=== PATIENT | female | born 1995 ===

== ENCOUNTER 2021-12-05 18:58 | Emergency (ER) | payer MEDICAID ==
[~2021-12-05] VITALS: Ht 162.6 cm; Wt 82.0 kg
[2021-12-05] MEDS ORDERED: IBUPROFEN 800MG TABLET PO ONE (20:15)
[2021-12-05] MEDS ORDERED: BACLOFEN 10MG TABLET PO ONE (21:00)
[2021-12-05] MEDS ORDERED: ONDANSETRON 4MG ODT PO ONE (21:15)
[2021-12-05 23:21] VITALS: BP 125/83
[2021-12-05 23:25] LABS: OPIATES URINE SCREEN NEGATIVE (NEGATIVE)
[2021-12-05 23:26] LABS: *AMPHETAMINES SCREEN URINE NEGATIVE (NEGATIVE); *BARBITURATES SCREEN URINE NEGATIVE (NEGATIVE); *BENZODIAZEPINES SCREEN URINE NEGATIVE (NEGATIVE); *COCAINE SCREEN URINE NEGATIVE (NEGATIVE); PHENCYCLIDINE URINE SCREEN NEGATIVE (NEGATIVE)
[2021-12-05 23:27] LABS: METHADONE URINE SCREEN NEGATIVE (NEGATIVE)
[2021-12-05 23:58] LABS: CANNABINOID URINE SCREEN PRESUMTIVE POSITIVE (NEGATIVE)
== END 2021-12-05 23:22 ==
LOC: ER 18:58
DX: M54.2 Cervicalgia (principal); M54.50 Low back pain, unspecified; M54.6 Pain in thoracic spine; Z98.890 Other specified postprocedural states
CPT/HCPCS: 70450; 71045; 72125; 72128; 72131; 80305; 81025; 99285; Q0162